=== PATIENT | female | born 1955 | race Caucasian/White ===

== ENCOUNTER → 2021-11-09 16:33 | Outpatient (BNVA) | payer BC, SELFPAY | PROVIDERS: Family Provider Counselor Professional; PCP Nurse Practitioner Family; Referring Provider Physician Assistant; Visit Provider Podiatrist Foot & Ankle Surgery | DX: M79.671 Pain in right foot (principal); M79.672 Pain in left foot | CPT/HCPCS: 73630 ==

== ENCOUNTER 2025-03-15 05:00 | Outpatient (RCR) | payer MEDICARE, SELFPAY | END 2025-04-13 23:59 | disposition home or self-care (01) | LOC: MPT 05:00 | PROVIDERS: Visit Provider Family Medicine | DX: M54.59 Other low back pain (principal) | CPT/HCPCS: 97162 ==

== ENCOUNTER 2025-04-14 05:00 | Outpatient (RCR) | payer MEDICARE, SELFPAY | END 2025-05-14 23:59 | disposition home or self-care (01) | LOC: MPT 05:00 | PROVIDERS: Visit Provider Family Medicine | DX: M54.59 Other low back pain (principal); G89.29 Other chronic pain | CPT/HCPCS: 97110; 97140; G0283 ==